=== PATIENT | female | born 1945 | race Caucasian/White ===

== ENCOUNTER 2018-07-24 23:47 | Inpatient (IN) | payer OTHER ==
[2018-07-25] MEDS ORDERED: GLUCOSE GEL 15 GRAM TUBE PO ×2 (03:00)
[2018-07-25] MEDS ORDERED: DEXTROSE 50% 50 ML SYRINGE IV ×2 (03:00)
[2018-07-25] MEDS ORDERED: DILTIAZEM 25 MG INJ IV (03:00)
[2018-07-25] MEDS ORDERED: GLUCAGON 1 MG INJ IM (03:00)
[2018-07-25] MEDS ORDERED: GLUCOSE GEL 15 GRAM TUBE BUCCAL (03:00)
[2018-07-25] MEDS ORDERED: ACETAMINOPHEN 325 MG TAB PO (03:00)
[2018-07-25] MEDS: LEVOTHYROXINE 100 MCG TAB PO (05:31)
[2018-07-25 06:10] LABS: ADD MAN DIFF? NO
[2018-07-25 06:24] LABS: BASOPHILS % 0.1 % (0.0-2.0); EOSINOPHILS % 0.3 % (0.0-7.0); HEMATOCRIT 44.7 % (37.0-47.0); HEMOGLOBIN 13.9 g/dl (12.0-16.0); LYMPHOCYTES # 1.3 10^3/ul (0.8-2.9); LYMPHOCYTES % 14.6 % (15.0-51.0); MEAN CORPUSCULAR HEMOGLOBIN 30.5 pg (29.0-33.0); MEAN CORPUSCULAR HGB CONC 31.1 g/dl (32.0-37.0); MEAN CORPUSCULAR VOLUME 98.2 fl (82.0-101.0); MEAN PLATELET VOLUME 10.5 fl (7.4-10.4); MONOCYTE # 0.8 10^3/ul (0.3-0.9); MONOCYTES % 9.3 % (0.0-11.0); NEUTROPHIL # 6.8 10^3/ul (1.6-7.5); NEUTROPHILS % 74.9 % (39.0-77.0); PLATELET COUNT 175 10^3/UL (140-415); RED BLOOD COUNT 4.55 10^6/ul (4.20-5.40); RED CELL DISTRIBUTION WIDTH 13.4 % (11.5-14.5)
[2018-07-25 06:24] LABS: WHITE BLOOD COUNT 9.1 10^3/ul (4.8-10.8)
[2018-07-25 06:46] LABS: ANION GAP 2 (5-13); BLOOD UREA NITROGEN 29 mg/dl (7-20); CALCIUM 8.8 mg/dl (8.4-10.2); CARBON DIOXIDE 38 mmol/L (21-31); CHLORIDE 99 mmol/L (97-110); CREATININE 0.64 mg/dl (0.44-1.00); GLUCOSE 129 mg/dl (70-220); POTASSIUM 4.9 mmol/L (3.5-5.1); SODIUM 139 mmol/L (135-144)
[2018-07-25] MEDS: INSULIN ASPART [NOVOLOG] 3 ML PEN SC ×4 (07:45→23:00)
[2018-07-25] MEDS: FAMOTIDINE 20 MG TAB PO ×2 (08:10→20:45)
[2018-07-25] MEDS: METHYLPREDNISOLONE 40 MG INJ IV (08:10)
[2018-07-25] MEDS: LISINOPRIL 5 MG TAB PO (08:11)
[2018-07-25] MEDS: BUDESONIDE (NEB) 0.5MG/2ML AMP HHN ×2 (09:16→21:05)
[2018-07-25 16:23] LABS: AADO2 Arterial 30.5 mmHg (7.0-24.0); Allen Test ACCEPTAB; Arterial Base Excess 10.5 mmol/L (-3.0-3); Arterial Blood Gas Oxygen Sat 95.5 mmHG (95.0-100.0); Arterial COHb 0.7 % (0.0-3.0); Arterial Fraction of Oxyhgb 94.6 % (93.0-99.0); Arterial HCO3 38.9 mmol/L (22.0-26.0); Arterial MetHb 0.2 % (0.0-1.5); Arterial pCO2 68.6 mmhg (35-45); MODE NASAL CANNULA; Site Right Radial
[2018-07-25 17:58] LABS: HEMOGLOBIN A1C 6.5 % (0-5.9)
[2018-07-25] MEDS: AMITRIPTYLINE 25 MG TAB PO (20:45)
[2018-07-25] MEDS: METOPROLOL (XL) 25 MG TAB PO (20:46)
[2018-07-25] MEDS: ALBUTEROL/IPRATROPIUM (NEB) 3 ML AMP HHN (21:05)
[2018-07-26 05:51] LABS: ADD MAN DIFF? NO
[2018-07-26 05:54] LABS: WHITE BLOOD COUNT 9.2 10^3/ul (4.8-10.8)
[2018-07-26 05:54] LABS: EOSINOPHILS # 0.1 10^3/ul (0.0-0.5); EOSINOPHILS % 0.5 % (0.0-7.0); HEMATOCRIT 43.4 % (37.0-47.0); HEMOGLOBIN 13.8 g/dl (12.0-16.0); LYMPHOCYTES # 1.2 10^3/ul (0.8-2.9); LYMPHOCYTES % 12.5 % (15.0-51.0); MEAN CORPUSCULAR HEMOGLOBIN 30.3 pg (29.0-33.0); MEAN CORPUSCULAR HGB CONC 31.8 g/dl (32.0-37.0); MEAN CORPUSCULAR VOLUME 95.4 fl (82.0-101.0); MEAN PLATELET VOLUME 10.2 fl (7.4-10.4); MONOCYTE # 0.7 10^3/ul (0.3-0.9); MONOCYTES % 7.7 % (0.0-11.0); NEUTROPHIL # 7.2 10^3/ul (1.6-7.5); NEUTROPHILS % 78.4 % (39.0-77.0); PLATELET COUNT 179 10^3/UL (140-415); RED BLOOD COUNT 4.55 10^6/ul (4.20-5.40); RED CELL DISTRIBUTION WIDTH 13.2 % (11.5-14.5)
[2018-07-26 06:18] LABS: MAGNESIUM 2.1 mg/dl (1.7-2.5)
[2018-07-26 06:18] LABS: PHOSPHORUS 4.5 mg/dl (2.5-4.9)
[2018-07-26 06:20] LABS: BLOOD UREA NITROGEN 32 mg/dl (7-20); CALCIUM 8.7 mg/dl (8.4-10.2); CHLORIDE 96 mmol/L (97-110); CREATININE 0.67 mg/dl (0.44-1.00); GLUCOSE 140 mg/dl (70-220); HDL CHOLESTEROL 65 mg/dl (33-92); LDL CHOLESTEROL,CALCULATED 54 mg/dl; POTASSIUM 4.9 mmol/L (3.5-5.1); SODIUM 138 mmol/L (135-144); TRIGLYCERIDES 57 mg/dl (0-149)
[2018-07-26 06:20] LABS: CHOLESTEROL 130 mg/dl (100-200)
[2018-07-26 06:25] LABS: B-TYPE NATRIURETIC PEPTIDE 2510 PG/ML (0-125)
[2018-07-26 06:26] LABS: ANION GAP 3 (5-13)
[2018-07-26 06:29] LABS: CARBON DIOXIDE 39 mmol/L (21-31)
[2018-07-26] MEDS: LEVOTHYROXINE 100 MCG TAB PO (06:30)
[2018-07-26 06:33] LABS: TROPONIN-I 0.122 ng/ml (0.000-0.120)
[2018-07-26] MEDS: INSULIN ASPART [NOVOLOG] 3 ML PEN SC ×4 (08:00→22:24)
[2018-07-26] MEDS: BUDESONIDE (NEB) 0.5MG/2ML AMP HHN ×2 (08:48→20:00)
[2018-07-26] MEDS: SPIRONOLACTONE 25 MG TAB PO (09:12)
[2018-07-26] MEDS: FAMOTIDINE 20 MG TAB PO ×2 (09:12→21:56)
[2018-07-26] MEDS: METHYLPREDNISOLONE 40 MG INJ IV (09:12)
[2018-07-26] MEDS: FUROSEMIDE 20 MG TAB PO (09:13)
[2018-07-26] MEDS: LISINOPRIL 5 MG TAB PO (09:13)
[2018-07-26] MEDS: METOPROLOL (XL) 25 MG TAB PO ×2 (09:14→21:58)
[2018-07-26] MEDS: ALBUTEROL/IPRATROPIUM (NEB) 3 ML AMP HHN ×2 (16:56→19:59)
[2018-07-26] MEDS: ENOXAPARIN 40 MG/0.4 ML SYG SC (17:20)
[2018-07-26] MEDS: ACETAZOLAMIDE 500 MG INJ IV (17:52)
[2018-07-26] MEDS: AMITRIPTYLINE 25 MG TAB PO (21:56)
[2018-07-27] MEDS: ALBUTEROL/IPRATROPIUM (NEB) 3 ML AMP HHN ×4 (02:18→21:02)
[2018-07-27 05:44] LABS: ADD MAN DIFF? NO
[2018-07-27 05:49] LABS: WHITE BLOOD COUNT 9.6 10^3/ul (4.8-10.8)
[2018-07-27 05:49] LABS: BASOPHILS % 0.2 % (0.0-2.0); EOSINOPHILS # 0.1 10^3/ul (0.0-0.5); EOSINOPHILS % 0.8 % (0.0-7.0); HEMATOCRIT 43.6 % (37.0-47.0); HEMOGLOBIN 14.1 g/dl (12.0-16.0); LYMPHOCYTES # 1.4 10^3/ul (0.8-2.9); LYMPHOCYTES % 14.3 % (15.0-51.0); MEAN CORPUSCULAR HEMOGLOBIN 30.8 pg (29.0-33.0); MEAN CORPUSCULAR HGB CONC 32.3 g/dl (32.0-37.0); MEAN CORPUSCULAR VOLUME 95.2 fl (82.0-101.0); MEAN PLATELET VOLUME 10.1 fl (7.4-10.4); MONOCYTE # 0.7 10^3/ul (0.3-0.9); MONOCYTES % 7.7 % (0.0-11.0); NEUTROPHIL # 7.3 10^3/ul (1.6-7.5); NEUTROPHILS % 76.2 % (39.0-77.0); PLATELET COUNT 179 10^3/UL (140-415); RED BLOOD COUNT 4.58 10^6/ul (4.20-5.40); RED CELL DISTRIBUTION WIDTH 13.2 % (11.5-14.5)
[2018-07-27 06:27] LABS: CK-MB 2.29 ng/ml (0.0-2.4)
[2018-07-27 06:28] LABS: CREATINE KINASE < 20 IU/L (23-200); TROPONIN-I 0.143 ng/ml (0.000-0.120)
[2018-07-27 06:29] LABS: ANION GAP 4 (5-13); BLOOD UREA NITROGEN 34 mg/dl (7-20); CALCIUM 9.3 mg/dl (8.4-10.2); CARBON DIOXIDE 37 mmol/L (21-31); CHLORIDE 97 mmol/L (97-110); CREATININE 0.97 mg/dl (0.44-1.00); GLUCOSE 143 mg/dl (70-220); SODIUM 138 mmol/L (135-144)
[2018-07-27] MEDS: LEVOTHYROXINE 100 MCG TAB PO (06:30)
[2018-07-27 07:30] LABS: MAGNESIUM 2.1 mg/dl (1.7-2.5)
[2018-07-27 07:30] LABS: PHOSPHORUS 5.3 mg/dl (2.5-4.9)
[2018-07-27] MEDS: LISINOPRIL 5 MG TAB PO (08:55)
[2018-07-27] MEDS: SPIRONOLACTONE 25 MG TAB PO (08:55)
[2018-07-27] MEDS: FAMOTIDINE 20 MG TAB PO ×2 (08:56→20:25)
[2018-07-27] MEDS: ASPIRIN 81 MG TAB PO (08:56)
[2018-07-27] MEDS: FUROSEMIDE 20 MG TAB PO (08:56)
[2018-07-27] MEDS: METHYLPREDNISOLONE 40 MG INJ IV (08:56)
[2018-07-27] MEDS: METOPROLOL (XL) 25 MG TAB PO ×2 (08:57→20:26)
[2018-07-27] MEDS: ENOXAPARIN 40 MG/0.4 ML SYG SC (09:10)
[2018-07-27] MEDS: INSULIN ASPART [NOVOLOG] 3 ML PEN SC ×4 (09:10→20:38)
[2018-07-27] MEDS: BUDESONIDE (NEB) 0.5MG/2ML AMP HHN ×2 (09:34→21:03)
[2018-07-27] MEDS: AMITRIPTYLINE 25 MG TAB PO (20:25)
[2018-07-28] MEDS: ALBUTEROL/IPRATROPIUM (NEB) 3 ML AMP HHN ×4 (04:00→21:13)
[2018-07-28] MEDS: LEVOTHYROXINE 100 MCG TAB PO (06:05)
[2018-07-28] MEDS: METHYLPREDNISOLONE 40 MG INJ IV (08:02)
[2018-07-28] MEDS: FUROSEMIDE 20 MG TAB PO (08:05)
[2018-07-28] MEDS: LISINOPRIL 5 MG TAB PO (08:06)
[2018-07-28] MEDS: SPIRONOLACTONE 25 MG TAB PO (08:06)
[2018-07-28] MEDS: FAMOTIDINE 20 MG TAB PO ×2 (08:06→21:58)
[2018-07-28] MEDS: ASPIRIN 81 MG TAB PO (08:07)
[2018-07-28] MEDS: METOPROLOL (XL) 25 MG TAB PO ×2 (08:07→21:00)
[2018-07-28] MEDS: ENOXAPARIN 40 MG/0.4 ML SYG SC (08:12)
[2018-07-28] MEDS: INSULIN ASPART [NOVOLOG] 3 ML PEN SC ×4 (08:12→21:00)
[2018-07-28] MEDS: BUDESONIDE (NEB) 0.5MG/2ML AMP HHN ×2 (09:32→21:14)
[2018-07-28] MEDS: AMITRIPTYLINE 25 MG TAB PO (21:58)
[2018-07-29] MEDS: ALBUTEROL/IPRATROPIUM (NEB) 3 ML AMP HHN ×4 (01:27→22:11)
[2018-07-29] MEDS: LEVOTHYROXINE 100 MCG TAB PO (05:51)
[2018-07-29] MEDS: INSULIN ASPART [NOVOLOG] 3 ML PEN SC ×4 (07:49→22:09)
[2018-07-29] MEDS: BUDESONIDE (NEB) 0.5MG/2ML AMP HHN ×2 (09:32→21:55)
[2018-07-29] MEDS: METHYLPREDNISOLONE 40 MG INJ IV (10:09)
[2018-07-29] MEDS: SPIRONOLACTONE 25 MG TAB PO (10:10)
[2018-07-29] MEDS: FUROSEMIDE 20 MG TAB PO ×2 (10:11→22:07)
[2018-07-29] MEDS: METOPROLOL (XL) 25 MG TAB PO ×2 (10:12→22:06)
[2018-07-29] MEDS: LISINOPRIL 5 MG TAB PO (10:12)
[2018-07-29] MEDS: ASPIRIN 81 MG TAB PO (10:12)
[2018-07-29] MEDS: FAMOTIDINE 20 MG TAB PO ×2 (10:12→22:06)
[2018-07-29] MEDS: ENOXAPARIN 40 MG/0.4 ML SYG SC (10:20)
[2018-07-29 10:48] LABS: AADO2 Arterial 44.9 mmHg (7.0-24.0); Allen Test ACCEPTAB; Arterial Base Excess 9.5 mmol/L (-3.0-3); Arterial Blood Gas Oxygen Sat 95.1 mmHG (95.0-100.0); Arterial COHb 0.3 % (0.0-3.0); Arterial Fraction of Oxyhgb 94.6 % (93.0-99.0); Arterial HCO3 36.4 mmol/L (22.0-26.0); Arterial MetHb 0.2 % (0.0-1.5); Arterial pCO2 58.7 mmhg (35-45); MODE 2; Site Right Radial
[2018-07-29 14:37] LABS: AADO2 Arterial 50.9 mmHg (7.0-24.0); Arterial Base Excess 12.7 mmol/L (-3.0-3); Arterial Blood Gas Oxygen Sat 91.9 mmHG (95.0-100.0); Arterial COHb 0.5 % (0.0-3.0); Arterial Fraction of Oxyhgb 91.3 % (93.0-99.0); Arterial HCO3 40.6 mmol/L (22.0-26.0); Arterial MetHb 0.2 % (0.0-1.5); Arterial pCO2 65.4 mmhg (35-45); MODE NASAL CANNULA; Site LB
[2018-07-29] MEDS: ACCU-CHEK XX ×2 (17:18→21:00)
[2018-07-29] MEDS: metFORMIN 500 MG TAB PO (17:21)
[2018-07-29] MEDS: AMITRIPTYLINE 25 MG TAB PO (22:07)
[2018-07-30] MEDS: ALBUTEROL/IPRATROPIUM (NEB) 3 ML AMP HHN ×4 (02:14→20:40)
[2018-07-30] MEDS: LEVOTHYROXINE 100 MCG TAB PO (05:50)
[2018-07-30 06:16] LABS: ADD MAN DIFF? NO
[2018-07-30 06:21] LABS: BASOPHILS % 0.2 % (0.0-2.0); EOSINOPHILS # 0.1 10^3/ul (0.0-0.5); EOSINOPHILS % 0.5 % (0.0-7.0); HEMATOCRIT 42.8 % (37.0-47.0); HEMOGLOBIN 13.6 g/dl (12.0-16.0); LYMPHOCYTES # 1.1 10^3/ul (0.8-2.9); LYMPHOCYTES % 10.6 % (15.0-51.0); MEAN CORPUSCULAR HEMOGLOBIN 30.6 pg (29.0-33.0); MEAN CORPUSCULAR HGB CONC 31.8 g/dl (32.0-37.0); MEAN CORPUSCULAR VOLUME 96.2 fl (82.0-101.0); MEAN PLATELET VOLUME 10.7 fl (7.4-10.4); MONOCYTE # 0.7 10^3/ul (0.3-0.9); MONOCYTES % 6.9 % (0.0-11.0); NEUTROPHIL # 8.2 10^3/ul (1.6-7.5); PLATELET COUNT 174 10^3/UL (140-415); RED BLOOD COUNT 4.45 10^6/ul (4.20-5.40); RED CELL DISTRIBUTION WIDTH 13.1 % (11.5-14.5)
[2018-07-30 06:21] LABS: WHITE BLOOD COUNT 10.1 10^3/ul (4.8-10.8)
[2018-07-30 06:40] LABS: ANION GAP 5 (5-13); BLOOD UREA NITROGEN 40 mg/dl (7-20); CALCIUM 9.3 mg/dl (8.4-10.2); CARBON DIOXIDE 38 mmol/L (21-31); CHLORIDE 96 mmol/L (97-110); CREATININE 0.97 mg/dl (0.44-1.00); GLUCOSE 136 mg/dl (70-220); POTASSIUM 4.9 mmol/L (3.5-5.1); SODIUM 139 mmol/L (135-144)
[2018-07-30 06:47] LABS: MAGNESIUM 2.1 mg/dl (1.7-2.5)
[2018-07-30 06:47] LABS: PHOSPHORUS 3.6 mg/dl (2.5-4.9)
[2018-07-30] MEDS: ACCU-CHEK XX ×4 (07:00→20:50)
[2018-07-30] MEDS: INSULIN ASPART [NOVOLOG] 3 ML PEN SC ×4 (08:00→20:50)
[2018-07-30] MEDS: METOPROLOL (XL) 25 MG TAB PO ×2 (08:17→20:49)
[2018-07-30] MEDS: predniSONE 10 MG TAB PO (08:17)
[2018-07-30] MEDS: SPIRONOLACTONE 25 MG TAB PO (08:18)
[2018-07-30] MEDS: metFORMIN 500 MG TAB PO ×2 (08:18→17:34)
[2018-07-30] MEDS: FAMOTIDINE 20 MG TAB PO ×2 (08:18→20:49)
[2018-07-30] MEDS: LISINOPRIL 5 MG TAB PO (08:19)
[2018-07-30] MEDS: ASPIRIN 81 MG TAB PO (08:19)
[2018-07-30] MEDS: FUROSEMIDE 20 MG TAB PO ×2 (08:19→20:49)
[2018-07-30] MEDS: ENOXAPARIN 40 MG/0.4 ML SYG SC (08:34)
[2018-07-30] MEDS: BUDESONIDE (NEB) 0.5MG/2ML AMP HHN ×2 (10:05→20:40)
[2018-07-30] MEDS: AMITRIPTYLINE 25 MG TAB PO (20:48)
[2018-07-31] MEDS: ALBUTEROL/IPRATROPIUM (NEB) 3 ML AMP HHN ×3 (02:03→13:56)
[2018-07-31] MEDS: LEVOTHYROXINE 100 MCG TAB PO (06:05)
[2018-07-31] MEDS: ACCU-CHEK XX ×3 (07:00→16:54)
[2018-07-31] MEDS: INSULIN ASPART [NOVOLOG] 3 ML PEN SC ×3 (07:59→16:57)
[2018-07-31] MEDS: FAMOTIDINE 20 MG TAB PO (08:05)
[2018-07-31] MEDS: ASPIRIN 81 MG TAB PO (08:05)
[2018-07-31] MEDS: predniSONE 10 MG TAB PO (08:05)
[2018-07-31] MEDS: metFORMIN 500 MG TAB PO ×2 (08:05→16:54)
[2018-07-31] MEDS: LISINOPRIL 5 MG TAB PO (08:06)
[2018-07-31] MEDS: METOPROLOL (XL) 25 MG TAB PO ×2 (08:06→13:04)
[2018-07-31] MEDS: FUROSEMIDE 20 MG TAB PO (08:06)
[2018-07-31] MEDS: SPIRONOLACTONE 25 MG TAB PO (08:07)
[2018-07-31] MEDS: ENOXAPARIN 40 MG/0.4 ML SYG SC (08:13)
[2018-07-31] MEDS: BUDESONIDE (NEB) 0.5MG/2ML AMP HHN (09:05)
== END 2018-07-31 19:20 | disposition home health service (06) | DRG 291 ==
LOC: 6WM 23:47
PROC: 4A133R1 Monitoring of Arterial Saturation, Peripheral, Percutaneous Approach (ICD-10-PCS; principal; 2018-07-25)
DX: I11.0 Hypertensive heart disease with heart failure (principal); I50.21 Acute systolic (congestive) heart failure; J96.21 Acute and chronic respiratory failure with hypoxia; J96.22 Acute and chronic respiratory failure with hypercapnia; J44.1 Chronic obstructive pulmonary disease with (acute) exacerbation; E11.8 Type 2 diabetes mellitus with unspecified complications; E66.9 Obesity, unspecified; Z68.28 Body mass index [BMI] 28.0-28.9, adult; E03.9 Hypothyroidism, unspecified; E78.5 Hyperlipidemia, unspecified; R74.8 Abnormal levels of other serum enzymes; I42.9 Cardiomyopathy, unspecified; F17.290 Nicotine dependence, other tobacco product, uncomplicated; Z82.49 Family history of ischemic heart disease and other diseases of the circulatory system; Z92.3 Personal history of irradiation; Z85.850 Personal history of malignant neoplasm of thyroid
CPT/HCPCS: 36600; 71045; 80048; 80061; 82550; 82553; 82803; 82962; 83036; 83735; 83880; 84100; 84484; 85025; 87081; 93005; 94640; 94660; 94664; 97162